=== PATIENT | female | born 1985 | race American Indian/Alaskan Native ===

== ENCOUNTER 2017-07-14 12:55 | Emergency (ER) | payer MEDICAID ==
[2017-07-14] MEDS ORDERED: Sodium Chloride 0.9% 1,000 ML IV ONE (15:30)
--- NOTE | 2017-07-14 15:34 | C.PDOC ---
History Of Present Illness 32yo female, with no past medical history, preents to ED with complaints of bilateral flank pain radiating to her groin, present since 3 days. She reports the pain is constant and at times improves and worsens. She states pain is 8/10 when worst and currently her pain is 8/10. She states the pain is crampy and shooting into her groin; reports associated urinary fullness and frequency. She denies any dysuria, fever, chills, vomiting, diarrhea. She does report associated nausea. Patient states she has never had such symptoms before and denies any vaginal bleeding and discharge as well. No other complaints. Time Seen by Provider: 07/14/17 15:09 Chief Complaint (Nursing): Back Pain History Per: Patient History/Exam Limitations: no limitations Onset/Duration Of Symptoms: Days Current Symptoms Are (Timing): Still Present Quality Of Discomfort: "Pain" Past Medical History Reviewed: Historical Data, Nursing Documentation, Vital Signs Vital Signs: Last Vital Signs Temp 98.8 F 07/14/17 18:34 Pulse 82 07/14/17 18:34 Resp 18 07/14/17 18:34 BP 146/79 07/14/17 18:34 Pulse Ox 99 07/14/17 19:13 - Medical History PMH: No Chronic Diseases Surgical History: No Surg Hx Family History: States: No Known Family Hx - Social History Hx Tobacco Use: No Hx Alcohol Use: Yes Hx Substance Use: No - Immunization History Hx Tetanus Toxoid Vaccination: No Hx Influenza Vaccination: Yes Hx Pneumococcal Vaccination: No Review Of Systems Except As Marked, All Systems Reviewed And Found Negative. Constitutional: Negative for: Fever, Chills Cardiovascular: Negative for: Chest Pain Respiratory: Negative for: Shortness of Breath Gastrointestinal: Negative for: Nausea, Vomiting Genitourinary: Positive for: Frequency, Other (urinary fullness). Negative for : Dysuria, Hematuria, Vaginal Discharge, Vaginal Bleeding Musculoskeletal: Positive for: Back Pain Physical Exam - Physical Exam Appears: Non-toxic, No Acute Distress Skin: Normal Color Neck: Normal ROM, Supple Cardiovascular: Rhythm Regular Respiratory: Normal Breath Sounds Gastrointestinal/Abdominal: Soft, Tenderness (suprapubic) Back: CVA Tenderness (bilateral) Neurological/Psych: Oriented x3 ED Course And Treatment - Laboratory Results Result Diagrams: 07/14/17 15:47 07/14/17 15:47 O2 Sat by Pulse Oximetry: 99 (RA) Pulse Ox Interpretation: Normal Medical Decision Making Medical Decision Making: Impression: in er pt noted to be ucg positive. r/o miscarriage ectopic early preg Plan: -- Labs -- Tylenol 975mg PO -- Zofran 4mg IVP -- IV fluids Time: 1911 Upon reassessment, patient seen laughing and joking and in no acute distress. Patient stable for discharge home. Informed to follow up with PCP in 1-2 days. pt tolerated po. no vb. 6 week confirmed. advise outpt f/u and return precautions. pt takin gpo. Disposition - Disposition Referrals: [facility] [Outside] [facility] [Outside] [facility] [Outside] Migue To MD [Staff Provider] - Disposition: HOME/ ROUTINE Disposition Time: 19:13 Condition: STABLE Additional Instructions: please follow up with your doctor. return to er with worsening symptoms or concerns. follow up with obgyn. . Instructions: Uterine Fibroids (ED), (ED), Threatened Miscarriage (ED ) Forms: [employer] (Kazakh) - Clinical Impression Clinical Impression: Threatened miscarriage - Scribe Statement The provider has reviewed the documentation as recorded by the Scribe (Nancy Kaufman) Provider Attestation: All medical record entries made by the Scribe were at my direction and personally dictated by me. I have reviewed the chart and agree that the record accurately reflects my personal performance of the history, physical exam, medical decision making, and the department course for this patient. I have also personally directed, reviewed, and agree with the discharge instructions and disposition.
[2017-07-14] MEDS ORDERED: Sodium Chloride 0.9% 1,000 ML ONE (15:42)
[2017-07-14 16:10] LABS: SQUAMOUS EPITHIAL 4 /hpf (0-5); URINE BACTERIA RARE (<OCC); URINE BILIRUBIN NEGATIVE (NEGATIVE); URINE BLOOD NEGATIVE (NEGATIVE); URINE CLARITY Clear (Clear); URINE COLOR Yellow (YELLOW); URINE GLUCOSE (UA) NORMAL (Normal); URINE LEUKOCYTE ESTERASE NEG Leu/uL (Negative); URINE NITRATE NEGATIVE (NEGATIVE); URINE PROTEIN NEGATIVE (NEGATIVE); URINE UROBILINOGEN NORMAL mg/dL (0.2-1.0)
[2017-07-14 16:12] LABS: INR 1.1; PROTHROMBIN TIME 12.1 SECONDS (9.7-12.2)
[2017-07-14 16:13] LABS: BASO % 0.1 % (0.0-2.0); EOS % 0.2 % (0.0-4.0); HCG,QUALITATIVE URINE POSITIVE (NEGATIVE); HEMOGLOBIN 12.1 g/dL (11.0-16.0); LYMPH # 2.1 K/uL (1.0-4.3); LYMPH % 30.3 % (20.0-40.0); MEAN CELL VOLUME 84.8 fL (81.0-99.0); MEAN CORPUSCULAR HEMOGLOBIN 29.3 pg (27.0-31.0); MEAN CORPUSCULAR HGB CONC 34.5 g/dL (33.0-37.0); MEAN PLATELET VOLUME 7.4 fL (7.2-11.7); MONO # 0.4 K/uL (0.0-0.8); MONO % 5.6 % (0.0-10.0); NEUT # 4.4 K/uL (1.8-7.0); NEUT % 63.8 % (50.0-75.0); RBC 4.12 Mil/uL (3.80-5.20); RED CELL DISTRIBUTION WIDTH 12.6 % (11.5-14.5); WHITE BLOOD COUNT 6.9 K/uL (4.8-10.8)
[2017-07-14 16:15] LABS: ALB/GLOB RATIO 1.3 (1.0-2.1); ALBUMIN 3.9 g/dL (3.5-5.0); ALT/SGPT 44 U/L (9-52); AST/SGOT 36 U/L (14-36); BLOOD UREA NITROGEN 4 mg/dL (7-17); CALCIUM 8.7 mg/dl (8.6-10.4); GFR AFRICAN-AMERICAN > 60; GFR NON-AFRICAN AMERICAN > 60; LIPASE 28 U/L (23-300)
[2017-07-14 18:34] VITALS: BP 146/79; PULSE 82; RESP 18; TEMP 98.8
--- NOTE | 2017-07-14 19:10 | US ---
EXAM: US , Transvaginal CLINICAL HISTORY: 32 years old, female; Pain; complicated by abdominal or pelvic pain; Lower; First trimester; Gestational age or lmp: Unknown 2014; TECHNIQUE: Real-time transvaginal obstetrical ultrasound of the maternal pelvis and a first trimester with image documentation. Transvaginal imaging was used for better evaluation of the fetus and adnexa. COMPARISON: No relevant prior studies available. FINDINGS: Gestation:There is a single intrauterine gestational sac. Sac measures 2.05 x 1.36 x 1.52 cm for a mean sac diameter of 1.64 cm for a menstrual age of 6 weeks and 0 days. There is a healed sac present. There is a pole with a crown-rump length measurement of 0.32 cm for menstrual age of 6 weeks and 0 days. Cardiac activity is noted at rate of 109 beats per minute. Placenta/amniotic fluid: Cannot be adequately evaluated due to the early gestational age. Uterus/cervix: The uterus measures 10 x 5.2 by approximately 5.5 cm. There is a intramural posterior corpus fibroid seen in the lower uterine segment measuring 1.6 x 1.3 x 1.9 cm. the cervix is closed at time the examination. . No myometrial mass. Ovaries: The right ovary measures 3.7 x 2.6 x 3.4 cm and contains a hemorrhagic cyst measuring 2.1 cm in greatest diameter. A hypervascular rim is noted surrounding the hemorrhagic corpus luteum cyst on color Doppler examination. The left ovary measures 2.9 x 1.7 x 2.6 cm. Several subcentimeter follicles are noted in the periphery of the ovary. Blood flow is seen in the ovary on color Doppler examination. . Free fluid: A small amount of free fluid is seen in the posterior cul-de-sac.. IMPRESSION: 1. Single live intrauterine with estimated menstrual age of 6 weeks and 0 days plus or -0 weeks and 3 days. Expected date of confinement is 03/09/2018.. 2.2. 1.9 cm intramural fibroid noted in the lower uterine segment posteriorly EXAM: US Pelvis Complete, Transabdominal US Pelvis, Transvaginal US Duplex Arterial/Venous of the Pelvis, Complete EXAM DATE/TIME: Exam ordered 07/14/2017 4:14 PM CLINICAL HISTORY: 32 years old, female; Pain; complicated by abdominal or pelvic pain; Lower; First trimester; Gestational age or lmp: Unknown 2014; TECHNIQUE: Real-time transabdominal and transvaginal pelvic ultrasound (complete) with image documentation. Transvaginal imaging was used for better evaluation of the endometrium and adnexa. Real-time duplex ultrasound scan of the arterial and venous flow of the pelvis with color Doppler flow and spectral waveform analysis. COMPARISON: No relevant prior studies available. FINDINGS: Uterus/cervix: The uterus measures 10.3 x 5 x 5.6 cm. The cervix is 3.1 cm in length. A 1.5 cm rounded fluid collection is noted within the uterus. No myometrial mass. The ovaries are not seen as separate structures. Free fluid: No free fluid. Bladder: Unremarkable as visualized. Wall is normal thickness for degree of distention. IMPRESSION: 1. 1.5 centimeter fluid collection within the uterus. This gestational sac was fully characterized on the transvaginal portion of the examination. Please see the attached report. 2. Nonvisualization of the ovaries.
[2017-07-14 19:13] VITALS: O2SAT 99
== END 2017-07-14 19:27 | disposition home or self-care (01) ==
LOC: C.ER 12:55
DX: O20.0 Threatened abortion (principal); Z3A.01 Less than 8 weeks gestation of pregnancy
CPT/HCPCS: 76805; 76817; 80053; 81001; 83690; 84702; 84703; 85025; 85610; 85730; 96361; 96374; 99284; J2405; J7040